=== PATIENT | female | born 1955 | race Caucasian/White ===

== ENCOUNTER 2017-03-02 06:53 | Day surgery (SDC) | payer OTHER ==
[~2017-03-02] VITALS: Ht 165.1 cm; Wt 51.0 kg
[2017-03-02 07:31] VITALS: Ht 165.1 cm; Wt 51.0 kg
[2017-03-02] MEDS ORDERED: LORAZEPAM (07:36)
[2017-03-02] MEDS ORDERED: ZOLOFT (07:36)
[2017-03-02] MEDS ORDERED: CYCLOBENZAPRINE (07:36)
[2017-03-02 08:01] VITALS: BP 116/56; PULSE 73; RESP 16
[2017-03-02] MEDS ORDERED: MIDAZOLAM 1 MG/ML 2 ML INJ ONE (08:23)
[2017-03-02] MEDS ORDERED: FENTAnyl 50 MCG/ML VIAL ONE (08:24)
--- NOTE | 2017-03-02 23:48 | GILP ---
DATE OF PROCEDURE: NAME OF PROCEDURES: Esophagogastroduodenoscopy and biopsy. SURGEON: Adelaida Saunders MD PREOPERATIVE DIAGNOSES: 1. Abdominal pain. 2. Chronic heartburn. POSTOPERATIVE DIAGNOSES: 1. Hiatal hernia. 2. Gastroesophageal reflux disease. 3. Gastritis with erosions. 4. Gastric mucosal biopsies were taken for Helicobacter pylori test. INDICATION FOR THE PROCEDURE: Ms. Dagmar Cherry is a 61-year-old female patient who had upper a bdominal pain and chronic heartburn, not responding to therapy. The patient was scheduled for endos copic examination. The procedure and possible complications were well explained to the patient. She understood and con sented to the procedure. DESCRIPTION OF PROCEDURE: Under the influence of fentanyl and Versed, the gastroscope was carefully introduced into the esophagus. Under direct vision, it was advanced to the stomach and through the pylorus into the duodenal bulb and descending duodenum. FINDINGS: ESOPHAGUS: The patient had hiatal hernia and gastroesophageal reflux disease. STOMACH: She had gastritis with erosions. Gastric mucosal biopsies were taken for H. pylori test. DUODENUM: Normal. She tolerated the procedure very well. There was no complication from the procedure. At the end of the procedure, she was awake with stable vital signs and she was discharged home to the care of her family. IMPRESSION: 1. Hiatal hernia. 2. Gastroesophageal reflux disease. 3. Gastritis with erosions. 4. Gastric mucosal biopsies were taken for Helicobacter pylori test. PLAN: 1. Omeprazole 40 mg p.o. q.a.m. 2. Await H. pylori test report. Dictated By: ADELAIDA BLISS/RAHEEL Conf#: [id number] DID#: [id number] CC: ADELAIDA SAUNDERS MD;*EndCC*
== END 2017-03-02 08:32 | disposition home or self-care (01) ==
LOC: MERGE 06:53 → GIL 06:53
PROVIDERS: ATTEND Internal Medicine Gastroenterology
DX: K44.9 Diaphragmatic hernia without obstruction or gangrene (principal); K21.9 Gastro-esophageal reflux disease without esophagitis; K29.60 Other gastritis without bleeding
CPT/HCPCS: 43239; 87081; J2250; J3010; Z7610

== ENCOUNTER 2017-04-01 06:33 | Day surgery (SDC) | payer OTHER ==
[~2017-04-01] VITALS: Ht 165.1 cm; Wt 49.8 kg
[~2017-04-01 06:33] MED LIST: CYCLOBENZAPRINE; LORAZEPAM; ZOLOFT
[2017-04-01 06:59] VITALS: Ht 165.1 cm; Wt 49.8 kg
[2017-04-01 07:30] VITALS: BP 120/56; PULSE 68; RESP 18
[2017-04-01 08:27] VITALS: BP 109/56; PULSE 66; RESP 66
[2017-04-01] MEDS ORDERED: MIDAZOLAM 1 MG/ML 2 ML INJ ONE (08:31)
[2017-04-01] MEDS ORDERED: FENTAnyl 50 MCG/ML VIAL ONE (08:31)
[2017-04-01 08:55] VITALS: BP 126/65; PULSE 58; RESP 12
--- NOTE | 2017-04-05 11:24 | GILP ---
DATE OF PROCEDURE: 04/01/2017 PROCEDURE PERFORMED: Colonoscopy. SURGEON: David Rocha MD PREOPERATIVE DIAGNOSIS: Screening colonoscopy. POSTOPERATIVE DIAGNOSES: Colonoscopy all the way to the cecum. Internal hemorrhoids. No colon neoplasm was identified. INDICATION: The patient is a 61-year-old female patient, who was scheduled for screening colonoscopy. The procedure and possible complications were well explained to the patient. She understood and consented to the procedure. DESCRIPTION OF PROCEDURE: Under the influence of fentanyl and Versed, the colonoscope was carefully introduced in the rectum, and under direct vision it was advanced all the way to the cecum. FINDINGS: The patient had internal hemorrhoids. No colon neoplasm was identified. She tolerated the procedure very well and there was no complication from the procedure. At the end of the procedure, she was awake with stable vital signs and she was discharged to the care of her family. IMPRESSION: Colonoscopy all the way to the cecum. Internal hemorrhoids. No colon neoplasm was identified. PLAN: Next screening colonoscopy in 10 years. Dictated By: MD RUTHY Dougherty/nano/nikhil /Document#: [id number]
== END 2017-04-01 19:35 | disposition home or self-care (01) ==
LOC: GIL 06:33
PROVIDERS: ATTEND Internal Medicine Gastroenterology
DX: Z12.11 Encounter for screening for malignant neoplasm of colon (principal); K64.8 Other hemorrhoids
CPT/HCPCS: 45378; J2250; J3010; Z7610